=== PATIENT | female | born 1995 | race Two or more races ===

== ENCOUNTER 2024-09-11 22:28 | Emergency (ER) | payer BC, OTHER ==
[~2024-09-11] VITALS: Ht 175.3 cm; Wt 99.8 kg
[~2024-09-11 22:28] MED LIST: PREN1TAB59 PO
[2024-09-11 22:55] VITALS: BP 134/87; PULSE 80; RESP 18; TEMP 100.2; O2SAT 100
[2024-09-11] MEDS ORDERED: DECADRON ONE (23:05)
[2024-09-11] MEDS: DECADRON IM STA (23:09)
[2024-09-11 23:20] VITALS: BP 129/86; PULSE 83; RESP 18; TEMP 100.2; O2SAT 100
== END 2024-09-11 23:20 | disposition home or self-care (01) ==
LOC: ER 22:28
DX: J06.9 Acute upper respiratory infection, unspecified (principal); B97.89 Other viral agents as the cause of diseases classified elsewhere
CPT/HCPCS: 99284; 96372; J1100